=== PATIENT | male | born 1960 | race Caucasian/White ===

== ENCOUNTER 2018-06-20 07:26 | Day surgery (SDC) | payer MEDICAID ==
[2018-06-20] MEDS ORDERED: Sodium Chloride 0.9% 1,000 ML IV SCH (08:15)
[2018-06-20] MEDS ORDERED: Propofol 10 mg/ml Inj (20 ML) ONE (09:02)
[2018-06-20 11:57] VITALS: BP 115/76; PULSE 57; RESP 17; TEMP 98.3; O2SAT 100
== END 2018-06-20 11:03 | disposition home or self-care (01) ==
LOC: ENDO 07:26
PROVIDERS: ATTEND Internal Medicine Gastroenterology
DX: Z12.11 Encounter for screening for malignant neoplasm of colon (principal); K29.50 Unspecified chronic gastritis without bleeding; K21.9 Gastro-esophageal reflux disease without esophagitis; K64.1 Second degree hemorrhoids; I10 Essential (primary) hypertension; E11.9 Type 2 diabetes mellitus without complications; M06.9 Rheumatoid arthritis, unspecified; M19.90 Unspecified osteoarthritis, unspecified site; E55.9 Vitamin D deficiency, unspecified; Z80.0 Family history of malignant neoplasm of digestive organs
CPT/HCPCS: 43239; 45378; 82948; 88305; 88312; 88342; J2001; J2704; J2765; J7030; J7040